=== PATIENT | female | born 1995 | race Caucasian/White ===

== ENCOUNTER 2022-05-22 15:30 | Emergency (ER) | payer MEDICAID, SELFPAY ==
[2022-05-22 15:38] VITALS: BP 146/91; PULSE 112; RESP 16; TEMP 37; O2SAT 100; BMI 18.7
--- NOTE | 2022-05-22 16:45 | ED.GENADULT ---
HPI - General Adult General Chief complaint: Weakness Stated complaint: Steroid Reaction Adrinal Crisis Time Seen by Provider: 05/22/22 15:43 History of Present Illness HPI narrative: This 26-year-old female comes in reporting several an ache [place] symptoms. She feels some tingling in her hands and mouth at times. She does report anxiety symptoms and has episodes of panic attacks. She states that she has symptoms in her left upper extremity and recently was started on prednisone to treat a tenosynovitis. She has taken this for 4 5 days. She took her last dose yesterday which was 5 mg. She reports that it was intended to be 10 mg but she was wondering if there were adverse affects from this medicine. She does report some increased anxiety and has had some strange thoughts. She looked up steroid treatment and wonders now if she tapered off too quickly and is in adrenal crisis. Related Data Home Medications Medication Instructions Recorded Confirmed escitalopram oxalate 10 mg tablet 5 mg PO QDAY 05/13/22 05/22/22 (Lexapro) lisdexamfetamine 20 mg capsule 20 mg PO QDAY PRN 05/13/22 05/22/22 (Vyvanse) prednisone 20 mg tablet mg 05/22/22 Previous Rx's Medication Instructions Recorded lorazepam 0.5 mg tablet (Ativan) 0.5 mg PO BID PRN #10 tabs 05/22/22 methylprednisolone 4 mg tablets in See Rx Instructions PO .COMPLEX 05/22/22 a dose pack (Medrol (Luis Eduardo)) #21 ea Allergies Allergy/AdvReac Type Severity Reaction Status Date / Time amoxicillin Allergy Intermediate Hives Verified 05/22/22 15:41 penicillin V Allergy Intermediate Hives Verified 05/22/22 15:41 Review of Systems Status of ROS: Reports: 10 or more systems reviewed and unremarkable except as noted in History and below Narrative: Constitutional: No fevers, no weight gain or loss. Eyes: No discharge. No vision changes. HENT: No congestion, no sore throat, no ear pain. Cardiovascular: No chest pain, no palpitations. Respiratory: No shortness of breath, no wheezes, no cough. Gastrointestinal: No abdominal pain, no vomiting, no diarrhea. Genitourinary: No dysuria, no hematuria. Musculoskeletal: Normal range of motion. Pain in the left upper extremity. Skin: No rashes, no pruritis. Neurological: No dizziness, weakness, speech change. Episodes of tingling sensation in hands and mouth area. Endo/Heme/Allergies: No bruising or bleeding. No polydipsia. Pysch: no suicidality, no anxiety, no insomnia. All other systems reviewed and are negative. PFSH PFS Family History Family/Other Heart disease Maternal Grandfather Colon cancer Mother Depression Father Bipolar 1 disorder Alcohol dependence Social History Narrative: [place]. Exercises 7 days a week. Nonsmoker. Occasional alcohol use on the weekends. No concerns with safety or abuse. Smoking Status: Never smoker How often do you have a drink containing alcohol: 2-3 times a week How many standard drinks containing alcohol do you have on a typical day: 1 or 2 How often do you have six or more drinks on one occasion: Never AUDIT-C Alcohol total score: 3 Non-prescribed substance use: marijuana (any form) Non-prescribed substance use details: once every 3 months maybe Exam Const: Vital Signs, click to edit/add: Vital Signs - 24 hr 05/22/22 15:38 Temperature 98.6 F Pulse Rate [Left P ulse Oximeter] 112 H Respiratory Rate 16 Blood Pressure [Ri ght Upper Arm] 146/91 H Pulse Oximetry 100 Oxygen Delivery Me thod Room Air Course Vital Signs Vital signs: Initial Vital Signs Temperature 98.6 F 05/22/22 15:38 Temperature Source Temporal Artery Scan 05/22/22 15:38 Pulse Rate 112 H 05/22/22 15:38 Respiratory Rate 16 05/22/22 15:38 Blood Pressure 146/91 H 05/22/22 15:38 Blood Pressure Mean 109 05/22/22 15:38 Blood Pressure Position Sitting 05/22/22 15:38 Pulse Oximetry 100 05/22/22 15:38 Oxygen Delivery Method 05/22/22 15:38 Vital Signs Temperature 98.6 F 05/22/22 15:38 Pulse Rate 112 H 05/22/22 15:38 Respiratory Rate 16 05/22/22 15:38 Blood Pressure 146/91 H 05/22/22 15:38 Pulse Oximetry 100 05/22/22 15:38 Oxygen Delivery Method 05/22/22 15:38 Temperature 98.6 F 05/22/22 15:38 Pulse Rate 112 H 05/22/22 15:38 Respiratory Rate 16 05/22/22 15:38 Blood Pressure 146/91 H 05/22/22 15:38 Pulse Oximetry 100 05/22/22 15:38 Oxygen Delivery Method 05/22/22 15:38 Medical Decision Making MDM Narrative Medical decision making narrative: This patient comes in with concern that she may be in some kind of adrenal crisis. She read about this as to the importance of tapering off of a steroid. She has been on prednisone for about 5 days so there is no likelihood of any kind of adrenal crisis. She does arrive with normal vital signs. Her heart rate was initially increased a bit but at the time of my visit it is in normal range. She may be having some adverse effects from prednisone. I did describe lab and imaging options with the patient which were declined in a process of shared decision making. She feels okay to return home seeing that her vital signs are okay and hearing that her symptoms are more likely adverse effects of a medicine. She thinks that she did benefit from the steroid however in regard to her symptoms of her left upper extremity. I did provide a prescription for Medrol Dosepak which should have less or no adverse effects in this way. She also received a few tablets of Ativan that can be used as needed for anxiety symptoms. She understands that this is not a good long-term treatment plan and that any management of ongoing symptoms will need to come from her primary physician. Discharge Plan Discharge Clinical Impression: Anxiety, Adverse drug effect Patient Disposition: Home, Self-Care Condition: Stable Additional Instructions: Take medication as needed and indicated. Follow up with MD or return if worsening. Prescriptions: New lorazepam [Ativan] 0.5 mg tablet 0.5 mg PO BID PRNQty: 10 0RF methylprednisolone [Medrol (Luis Eduardo)] 4 mg tablets,dose pack See Rx Instructions .ROUTE .COMPLEX Qty: 21 0RF Rx Instructions: orally per package directions No Action escitalopram oxalate [Lexapro] 10 mg tablet 5 mg PO QDAY Vyvanse 20 mg capsule 20 mg PO QDAY PRN prednisone 20 mg tablet Follow Up/Referrals: Lori Sabillon DO [Primary Care Provider] - Stand Alone Forms: [employer] Info Instructions
[2022-05-22 17:22] VITALS: BP 127/87; PULSE 67; RESP 20; O2SAT 100
== END 2022-05-22 17:24 | disposition home or self-care (01) ==
LOC: ED 17:07
PROVIDERS: Emergency Provider Emergency Medicine Emergency Medical Services; PCP Family Medicine
DX: F41.9 Anxiety disorder, unspecified (principal); T38.0X5A Adverse effect of glucocorticoids and synthetic analogues, initial encounter
CPT/HCPCS: 99283; 99285

== ENCOUNTER 2022-08-02 10:00 | Outpatient (RCR) | payer MEDICAID, SELFPAY | END 2022-08-18 08:07 | disposition home or self-care (01) | PROVIDERS: PCP Family Medicine; Visit Provider Family Medicine | DX: M65.9 Synovitis and tenosynovitis, unspecified (principal); G25.89 Other specified extrapyramidal and movement disorders; M77.8 Other enthesopathies, not elsewhere classified; M25.512 Pain in left shoulder; M25.511 Pain in right shoulder; R29.3 Abnormal posture; M62.81 Muscle weakness (generalized); M54.6 Pain in thoracic spine; M25.532 Pain in left wrist; Z51.89 Encounter for other specified aftercare | CPT/HCPCS: 97110; 97140; 97161 ==

== ENCOUNTER 2022-10-28 13:59 | Outpatient (CLI) | payer MEDICAID, SELFPAY ==
--- NOTE | 2022-10-28 14:00 | CRLHL7_ITS ---
For Patients: As a result of the Century Cures Act, medical imaging exams and procedure reports are released immediately into your electronic medical record. You may view this report before your referring provider. If you have questions, please contact your health care provider. CLINICAL HISTORY: IUD placement and pelvic pain TECHNIQUE: 2D gavin scale ultrasound. In addition color Doppler and spectral Doppler analysis was performed of the pelvis using a transvaginal approach. FINDINGS: On transvaginal imaging, the myometrium has a normal uniform echotexture. Intrauterine device is in good position within the endometrial canal. The right ovary measures 3.6 x 1.7 x 1.9 cm in size and the left ovary measures 4.5 x 2.4 x 2.7 cm. The ovaries demonstrate normal arterial and venous blood flow on color Doppler and spectral Doppler analysis. There are no suspicious fluid collections within the cul-de-sac. IMPRESSION: Normal position of the IUD within the endometrial canal. Normal ovaries without torsion. Dictated by Raf Desir MD @ 10/28/2022 3:08:05 PM (Electronically Signed)
== END 2022-10-28 14:00 | disposition home or self-care (01) ==
LOC: US 14:00
PROVIDERS: PCP Family Medicine; Visit Provider Physician Assistant
DX: R10.2 Pelvic and perineal pain (principal); Z30.431 Encounter for routine checking of intrauterine contraceptive device
CPT/HCPCS: 76830; 93976

== ENCOUNTER 2023-05-25 14:31 | Outpatient (CLI) | payer MEDICAID, SELFPAY | END 2023-05-25 14:32 | disposition home or self-care (01) | LOC: NFLDREF 05-27 06:54 | PROVIDERS: PCP Family Medicine; Referring Provider Family Medicine; Visit Provider Nurse Practitioner Family | DX: R30.0 Dysuria (principal); R11.0 Nausea | CPT/HCPCS: 87086 ==

== ENCOUNTER 2023-07-23 00:08 | Emergency (ER) | payer MEDICAID, SELFPAY ==
[2023-07-23 00:12] VITALS: BP 124/69; PULSE 73; RESP 18; TEMP 36.4; O2SAT 100; BMI 20.2
--- NOTE | 2023-07-23 00:28 | CT_ITS ---
Patient: TY MYERS Facility:?[facility] Patient ID:?[id number] Site Patient ID:?[id number]. Site :?[id number] Study:?CT-Abdomen/Pelvis WITH 62CC [id number] contrast-07/23/2023 1:18:19 AM Ordering Physician:mari nazario Final Report: INDICATION: sudden anterior abdominal pain CT ABDOMEN AND PELVIS WITH CONTRAST TECHNIQUE: Multidetector CT imaging was performed through the abdomen and pelvis following intravenous contrast administration using 62mL Isovue 370. Coronal and sagittal reconstructions were generated. COMPARISON: None. FINDINGS: Included portions of the lower chest show the lung bases to be clear. The liver, spleen, gallbladder, pancreas, adrenals, and kidneys show no significant findings. Bowel loops are of normal caliber and demonstrate no wall thickening. The appendix is normal. No free fluid or free air is identified. The abdominal aorta appears normal in caliber. No abnormally enlarged lymph nodes are seen. The urinary bladder, uterus, and adnexal regions are within normal limits. Visualized bones show no acute findings. IMPRESSION: No acute abnormality identified. No cause for the patient`s symptoms is evident. RALPH RAMON MD [facility] Please note that all CT scans at this facility use dose modulation, iterative reconstruction, and/or weight-based dosing when appropriate to reduce radiation dose to as low as reasonably achievable. Dictated by: Collins Ramon MD @ 07/23/2023 01:35:09 Signed by:?Collins Ramon MD @07/23/2023 1:35:09 AM (Electronic Signature)
--- NOTE | 2023-07-23 00:30 | ED.ABDPAIN ---
HPI - Abdominal Pain General Chief Complaint: Abdominal Pain Stated Complaint: Abominal Pain Time Seen by Provider: 07/23/23 00:25 History of Present Illness HPI narrative: Patient is a 28-year-old woman who began having abdominal pain 20 minutes ago. This woke her from sleep she proceeded immediately to the emergency room. The pain is in the epigastrium. She has no radiation of her symptoms to her back. She has had no fevers no chills no night sweats no dysuria. She did have nausea vomiting earlier in the day. She has had no similar symptoms previously. She states she is not has an IUD in place. The pain is severe and located in the epigastrium. It is sharp. Related Data Home Medications Medication Instructions Recorded Confirmed escitalopram oxalate 10 mg tablet 5 mg PO QDAY 05/13/22 06/01/23 (Lexapro) copper 380 square mm intrauterine 1 device intrauterine ONCE 10/28/22 06/01/23 device (ParaGard T 380A) Allergies Allergy/AdvReac Type Severity Reaction Status Date / Time amoxicillin Allergy Intermediate Hives Verified 06/01/23 10:44 penicillin V Allergy Intermediate Hives Verified 06/01/23 10:44 Review of Systems Status of ROS Reports: 10 or more systems reviewed and unremarkable except as noted in History and below PFSH PFS Medical History Encounter for IUD insertion ?Z30.430 - Encounter for insertion of intrauterine contraceptive device (ICD-10) Family History Family/Other Heart disease Maternal Grandfather Colon cancer Mother Depression Father Bipolar 1 disorder Alcohol dependence Social History Narrative: [place]. Exercises 7 days a week. Nonsmoker. Occasional alcohol use on the weekends. No concerns with safety or abuse. Smoking Status: Never smoker How often do you have a drink containing alcohol: 2-3 times a week How many standard drinks containing alcohol do you have on a typical day: 1 or 2 How often do you have six or more drinks on one occasion: Never AUDIT-C Alcohol total score: 3 Non-prescribed substance use: marijuana (any form) Non-prescribed substance use details: once every 3 months maybe Exam Narrative: Exam Narrative: EXAM GENERAL: Patient appears to be in moderate distress. EYES: No scleral icterus. LYMPH: No supraclavicular or cervical lymphadenopathy. SKIN: Visible skin seen during exam normal or with benign process only. EXT: No dependent lower extremity pedal edema. HEART: Regular rate and rhythm with no murmurs, rubs, or gallops. LUNGS: Clear to auscultation bilaterally with no crackles or wheezes. ABD: Soft minimally tender particularly in the right upper and middle portion of her upper abdomen. PSYCH: Good eye contact, speech is not pressured. Const: Vital Signs, click to edit/add: Vital Signs - 24 hr 07/23/23 00:12 Temperature 97.5 F L Pulse Rate [Left P ulse Oximeter] 73 Respiratory Rate 18 Blood Pressure [Ri ght Upper Arm] 124/69 Pulse Oximetry 100 Oxygen Delivery Me thod Room Air Course Course ED Course: CBC CMP amylase serum test UA CT abdomen pelvis pending. I did give her L of normal saline 4 mg of Zofran and 0.5 mg of Dilaudid. Vital Signs Vital signs: Initial Vital Signs Temperature 97.5 F L 07/23/23 00:12 Temperature Source Temporal Artery Scan 07/23/23 00:12 Pulse Rate 73 07/23/23 00:12 Pulse Rhythm Regular 07/23/23 00:12 Respiratory Rate 18 07/23/23 00:12 Blood Pressure 124/69 07/23/23 00:12 Blood Pressure Mean 87 07/23/23 00:12 Blood Pressure Position Sitting 07/23/23 00:12 Pulse Oximetry 100 07/23/23 00:12 Oxygen Delivery Method Room Air 07/23/23 00:12 Vital Signs Temperature 97.5 F L 07/23/23 00:12 Pulse Rate 73 07/23/23 00:12 Respiratory Rate 18 07/23/23 00:12 Blood Pressure 124/69 07/23/23 00:12 Pulse Oximetry 100 07/23/23 00:12 Oxygen Delivery Method Room Air 07/23/23 00:12 Temperature 97.5 F L 07/23/23 00:12 Pulse Rate 73 07/23/23 00:12 Respiratory Rate 18 07/23/23 00:12 Blood Pressure 124/69 07/23/23 00:12 Pulse Oximetry 100 07/23/23 00:12 Oxygen Delivery Method Room Air 07/23/23 00:12 Medications Administered Medications: Generic Name Dose Route Start Last Admin Trade Name Ana Luisa PRN Reason Stop Dose Admin Hydromorphone HCl 0.5 mg 07/23/23 00:28 07/23/23 00:48 Hydromorphone 0.5 Mg/0.5 Ml Inj IVP 07/23/23 00:29 0.5 mg ONCE ONE Administration Sodium Chloride 1,000 mls @ 1,000 mls/hr 07/23/23 00:29 07/23/23 00:49 0.9 % Sodium Chloride 1000 Ml IV 07/23/23 01:28 1,000 mls/hr .Q1H TOMASA Administration Ondansetron HCl 4 mg 07/23/23 00:28 07/23/23 00:49 Ondansetron 2 Mg/Ml Inj IVP 07/23/23 00:29 4 mg ONCE ONE Administration MDM - Abdominal Pain MDM Narrative Medical decision making narrative: Patient is a 28-year-old woman comes immediately after the onset of upper abdominal cramping. She has some diarrhea as well as nausea earlier in the day. We did do a full evaluation including CBC electrolytes amylase CT abdomen pelvis. Patient unable to provide a urinary sample. Workup is unremarkable findings are most consistent with gastroenteritis verses stomach flu differential diagnosis includes but not limited to cast her itis stomach flu acute abdomen cholecystitis choledocholithiasis peptic ulcer reflux dyspepsia Lab Data Labs: Lab Results 07/23/23 Range/Units 00:45 WBC 10.07 (4.50-11.00) K/uL RBC 4.80 (4.00-5.20) m/uL Hgb 14.1 (12.0-16.0) gm/dL Hct 43.0 (33.0-51.0) % MCV 90 (80-100) fL MCH 29 (26-34) pg MCHC 33 (32-36) gm/dL RDW Coeff of Gus 11.7 (11.5-15.5) % Plt Count 267 (140-440) K/uL Neut % (Auto) 75.7 H (42.0-72.0) % Lymph % (Auto) 15.5 L (20-44) % [place] % (Auto) 5.4 (0.0-11.0) % Eos % (Auto) 2.3 (0.0-7.0) % Baso % (Auto) 0.3 (0.0-3.0) % Neut # (Auto) 7.60 H (1.7-7.0) K/uL Lymph # (Auto) 1.60 (0.90-2.90) K/uL [place] # (Auto) 0.50 (0.00-0.90) K/UL Eos # (Auto) 0.23 (0.00-0.50) K/uL Baso # (Auto) 0.03 (0.00-0.30) K/uL Abs Immat Gran (auto) 0.08 (0.00-0.30) K/uL Imm/Tot Granulo (auto) 0.8 % Sodium 140 (135-149) mmol/L Potassium 3.0 L (3.6-5.1) mmol/L Chloride 101 (96-114) mmol/L Carbon Dioxide 24 (20-32) mmol/L Anion Gap 15 (7-15) mEq/L BUN 11 (5-24) mg/dL Creatinine 0.6 (0.5-1.5) mg/dL Estimated Creat Clear 126.06 Estimated GFR 126 ml/min Glucose 136 H (60-115) mg/dL Calcium 10.1 (8.4-10.6) mg/dL Total Bilirubin 0.3 (0.1-1.5) mg/dL AST 38 H (12-35) U/L ALT 25 (4-35) U/L Alkaline Phosphatase 76 (40-150) U/L Total Protein 8.2 (6.0-8.3) g/dL Albumin 5.0 (3.3-5.0) g/dL Amylase 90 H (18-89) U/L HCG, Qual Negative (Negative) Discharge Plan Discharge Clinical Impression: Gastroenteritis Patient Disposition: Home, Self-Care Condition: Stable Instructions: Gastroenteritis (ED) Additional Instructions: Zofran as directed Tylenol Motrin Rest Fluids Follow-up with your doctor this week. Activity Level: No Restrictions Discharge Diet: Regular Prescriptions: No Action escitalopram oxalate [Lexapro] 10 mg tablet 5 mg PO QDAY ParaGard T 380A 380 square mm intrauterine device 1 device intrauterine ONCE Rx Instructions: as a single dose Follow Up/Referrals: Lori Sabillon DO [Primary Care Provider] - Stand Alone Forms: [employer] Info Instructions
[2023-07-23] MEDS: HYDROmorphone 0.5 mg/0.5 ml inj IVP (00:48)
[2023-07-23] MEDS: 0.9 % SODIUM CHLORIDE 1000 ml 1,000 ML IV (00:49)
[2023-07-23] MEDS: ONDANSETRON 2 MG/ML inj 4 MG IVP (00:49)
[2023-07-23 00:53] LABS: Basophils Absolute Auto 0.03 K/uL (0.00-0.30); Basophils Percent Auto 0.3 % (0.0-3.0); Eosinophils Absolute Auto 0.23 K/uL (0.00-0.50); Eosinophils Percent Auto 2.3 % (0.0-7.0); Hemoglobin* 14.1 gm/dL (12.0-16.0); Immature Granulocytes Abs Auto 0.08 K/uL (0.00-0.30); Immature Granulocytes Pct Auto 0.8 %; Lymphocytes Percent Auto 15.5 % (20-44); Mean Corpuscular HGB Conc 33 gm/dL (32-36); Mean Corpuscular Hemoglobin 29 pg (26-34); Mean Corpuscular Volume 90 fL (80-100); Monocytes Percent Auto 5.4 % (0.0-11.0); Neutrophils Percent Auto 75.7 % (42.0-72.0); Platelet Count* 267 K/uL (140-440); RDW Coefficient of Variation % 11.7 % (11.5-15.5); White Blood Count* 10.07 K/uL (4.50-11.00)
[2023-07-23 00:57] LABS: Slide Review Reflex No
[2023-07-23 01:08] LABS: Chloride* 101 mmol/L (96-114)
[2023-07-23 01:09] LABS: Sodium* 140 mmol/L (135-149)
[2023-07-23 01:11] LABS: Amylase* 90 U/L (18-89); Anion Gap 15 mEq/L (7-15); Bilirubin Total* 0.3 mg/dL (0.1-1.5); Blood Urea Nitrogen* 11 mg/dL (5-24); Carbon Dioxide* 24 mmol/L (20-32); Creatinine* 0.6 mg/dL (0.5-1.5); Est. Creatinine Clearance* 126.06; Estimated Glomerular Filt Rate 126 ml/min; Total Protein* 8.2 g/dL (6.0-8.3)
[2023-07-23 01:12] LABS: Alanine Aminotransferase* 25 U/L (4-35); Alkaline Phosphatase* 76 U/L (40-150); Aspartate Amino Transferase* 38 U/L (12-35); Calcium* 10.1 mg/dL (8.4-10.6); Glucose* 136 mg/dL (60-115)
[2023-07-23 01:35] LABS: HCG Qualitative Serum* Negative (Negative)
[2023-07-23 02:00] VITALS: BP 111/74; PULSE 90; RESP 18; O2SAT 100
== END 2023-07-23 02:09 | disposition home or self-care (01) ==
PROVIDERS: Emergency Provider Internal Medicine; PCP Family Medicine
DX: K52.9 Noninfective gastroenteritis and colitis, unspecified (principal)
CPT/HCPCS: 36415; 74177; 80053; 81003; 82150; 84703; 85025; 96374; 96375; 99283; 99284; J1170; J2405; J7030; Q9967

== ENCOUNTER 2023-12-28 07:30 | Outpatient (RCR) | payer MEDICAID, SELFPAY | END 2024-02-08 11:06 | disposition home or self-care (01) | PROVIDERS: PCP Family Medicine; Visit Provider Student in an Organized Health Care Education/Training Program | DX: S06.0X0D Concussion without loss of consciousness, subsequent encounter (principal); M54.2 Cervicalgia; G44.86 Cervicogenic headache; R53.83 Other fatigue; M62.81 Muscle weakness (generalized); R26.81 Unsteadiness on feet; Z51.89 Encounter for other specified aftercare | CPT/HCPCS: 97110; 97112; 97140; 97161; 97165 ==